=== PATIENT | male | born 1985 | race Two or more races ===

== ENCOUNTER 2019-03-05 10:18 | Emergency (ER) | payer SELFPAY ==
[~2019-03-05] VITALS: Ht 167.6 cm; Wt 87.1 kg
[2019-03-05 10:18] VITALS: BP 121/71
--- NOTE | 2019-03-05 10:18 | NUR ---
ED Nurse Note: Patient brought in by ambulance DAVIDTaty, from work. patient felt dizzy all of a sudden 30 minutes prior to arrival. patient reports tingling sensations in his arms and legs after sitting down from the dizziness. patiet denies LOC. patient reports he quit smoking his vape yesterday. patient is alert awake x4 ambulatory, breathing unlabored and even.
--- NOTE | 2019-03-05 10:50 | Emergency Room Report ---
History of Present Illness General Chief Complaint: Dizziness Source: Patient Present Illness HPI 33-year-old male, no past medical history, no surgical history presents with diaphoresis, palpitations, nausea, he felt like he was about to faint, he denies any aggravating or alleviating factors, and states he was standing at work, he felt the symptoms come on gradually like his vision was narrowing, he has no family history of sudden cardiac , he felt tingling in his hands. Allergies: Coded Allergies: No Known Allergies (Unverified , 03/05/19) Patient History Reviewed Nursing Documentation: PMH: Agreed; PSxH: Agreed Nursing Documentation-PM Past Medical History: No Stated History Review of Systems Constitutional: Reports: sweats; Denies: chills, fever Eye: Denies: blurred vision, double vision ENT: Denies: throat pain, nasal discharge Respiratory: Reports: shortness of breath; Denies: cough Cardiovascular: Reports: palpitations, syncope - Presyncope; Denies: chest pain Gastrointestinal: Reports: nausea; Denies: abdominal pain, diarrhea, vomiting Genitourinary: Denies: dysuria, pain Musculoskeletal: Denies: back pain, muscle pain Skin: Denies: rash, lesions Neurological: Denies: headache, focal weakness Hematologic/Lymphatic: Denies: easy bleeding, easy bruising All Other Systems: negative except mentioned in HPI Physical Exam Vital Signs Date Time Temp Pulse Resp B/P (MAP) Pulse Ox O2 Delivery O2 Flow Rate FiO2 03/05/19 10:05 97.7 70 19 125/77 (93) 97 Room Air Sp02 EP Interpretation: reviewed, normal General Appearance: well appearing, no apparent distress, alert Head: normocephalic, atraumatic Eyes: bilateral eye PERRL, bilateral eye EOMI ENT: uvula midline, moist mucus membranes Neck: supple, thyroid normal, supple/symm/no masses Respiratory: lungs clear, no respiratory distress, no retraction, no accessory muscle use Cardiovascular #1: normal peripheral pulses, regular rate, rhythm, no edema, no gallop, no murmur Gastrointestinal: non tender, soft, no guarding, no rebound Musculoskeletal: normal inspection Neurologic: alert, oriented x3 Psychiatric: mood/affect normal Skin: no rash, warm/dry Medical Decision Making Diagnostic Impression: Primary Impression: Vaso vagal episode ER Course 33-year-old male presents most likely with a vasovagal episode patient is asymptomatic, patient felt better when he slowed his breathing, EKG in the ER showed no acute findings, patient counseled, return precautions discussed, follow-up with PCP EKG Diagnostic Results EKG Time: 10:32 EP Interpretation: NSR, rate 71, QTc 425, no acute ST elevations, normal axis Rate: normal Rhythm: NSR ST Segments: no acute changes Last Vital Signs Date Time Temp Pulse Resp B/P (MAP) Pulse Ox O2 Delivery O2 Flow Rate FiO2 03/05/19 10:23 70 19 Room Air 03/05/19 10:18 97.7 121/71 98 Disposition: HOME, SELF-CARE Condition: Improved Referrals: [facility] Patient Instructions: Syncope, Vasovagal Syncope, Adult Additional Instructions: The patient was provided with discharge instructions, notified to follow-up with a primary care doctor and or specialist in the next 24-48 hours, and to return to the ED if they have worsening of their symptoms. Please note that this report is being documented using [employer] technology. This can lead to erroneous entry secondary to incorrect interpretation by the dictating instrument. Danial Riley M.D. Mar 05, 2019 10:50
[2019-03-05 10:59] VITALS: BP 121/71
--- NOTE | 2019-03-06 18:52 | Cardiology Report ---
APPROVED REPORT EKG Measurement Heart [id number] Normal sinus rhythm with sinus arrhythmia Cannot rule out Anterior infarct, age undetermined Abnormal ECG
== END 2019-03-05 11:00 | disposition home or self-care (01) ==
LOC: EDBD 10:18 → EMR 11:00
DX: R55 Syncope and collapse (principal)
CPT/HCPCS: 93005; 99283